=== PATIENT | female | born 1985 | race Caucasian/White ===

== ENCOUNTER 2016-11-26 05:10 | Emergency (ER) | payer OTHER ==
[~2016-11-26] VITALS: Ht 162.6 cm; Wt 48.0 kg
[~2016-11-26 05:10] MED LIST: DEXT155P PO; HC1C30 TOP; KEN25O TOP; OXYM30SP20 NASAL; POLY17PO6 PO
[2016-11-26 05:17] VITALS: Ht 162.6 cm; Wt 48.0 kg
--- NOTE | 2016-11-26 06:22 | ERD ---
ER Documentation Chief Complaint Date/Time DATE: 11/26/16 TIME: 06:18 Chief Complaint Bug in the left ear. can feel it moving HPI This is a 31-year-old female presenting to the emergency department for foreign body to left ear. Patient states she believes there is a "bug" in her left ear and states she can feel it moving. Patient states she noticed it about 3 hours ago. Patient denies any ear pain or ear drainage. No fevers or chills. No muffled hearing. No difficulty swallowing or pain with swallowing. ROS All systems reviewed and are negative except as per history of present illness. Medications Home Meds Active Scripts Ciprofloxacin Hcl/Dexameth (Ciprodex Otic Suspension) 7.5 Ml Drops.susp, 4 DROP LEFT EAR BID for 7 Days, EA Prov:KANWAL LICEA NP 11/26/16 Hydrocortisone* Topical (Hydrocortisone* Topical) 1%-28.35 Gm Cream..g., 1 APPLIC TOP Q6 Y for ITCHING, #1 TUB Prov:SASHA HOPKINS 08/07/16 Oxymetazoline Hcl (NASAL SPRAY EXTRA MOISTURIZING) 30 Ml [place], 1 SPRAY NASAL BID, #1 BOTTLE Prov:GWENDOLYN JARRELL DO 04/12/16 Triamcinolone Acetonide* (Kenalog*) 0.025%-15GM Oint, 1 APPLIC TOP BID, #1 EA Prov:GWENDOLYN JARRELL DO 04/12/16 Reported Medications Dextrin (EASY FIBER) 155 Gm Powder, 155 GM PO DAILY Y for NEEDED 04/12/16 Polyethylene Glycol* (Miralax*) 17 Gm Powd.pack, 8.5 GM PO DAILY, #30 PACKET 04/12/16 Allergies Allergies: Coded Allergies: No Known Drug Allergies (Verified Allergy, Unknown, 04/12/16) PMhx/Soc History of Surgery: No Anesthesia Reaction: No Hx Neurological Disorder: No Hx Respiratory Disorders: No Hx Cardiac Disorders: No Hx Psychiatric Problems: Yes (OCD, Autism) Hx Miscellaneous Medical Probl: Yes (Sciatica, Reynaud's disease, migraine. digestive problems) Hx Alcohol Use: No Hx Substance Use: No Hx Tobacco Use: No Smoking Status: Never smoker Physical Exam Vitals Vital Signs Date Time Temp Pulse Resp B/P Pulse Ox O2 Delivery O2 Flow Rate FiO2 11/26/16 05:17 97.4 85 18 105/67 100 Physical Exam Const: Alert, anxious Head: Atraumatic Eyes: Normal Conjunctiva ENT: Normal External Ears, Nose and Mouth. TM and ear canal normal to right side without erythema. Left ear canal reveals a foreign body, likely a bug. Resp: Clear to auscultation bilaterally Cardio: Regular rate and rhythm, no murmurs Skin: No petechiae or rashes Ext: No cyanosis, or edema Neur: Awake and alert Psych: Anxious Results 24 hrs Current Medications Medications (Trade) Dose Ordered Sig/Shellie Route PRN Reason Start Time Stop Time Status Last Admin Dose Admin Lidocaine (Xylocaine 1% (Mdv) 20 ml) 20 ml ONCE ONCE SC 11/26/16 06:30 11/26/16 06:31 DC Procedures/MDM ED COURSE: The patient was stable throughout ED course. I kept the patient and/or family informed of laboratory and diagnostic imaging results throughout the ED course. Lidocaine was placed in left ear. Ear irrigation performed per nursing staff. Foreign Body Removal by me: Location: Left ear Anesthesia: Local 1% Lidocaine placed inside left ear canal. Technique: Irrigated. Blunt dissection. Complications: Neurovascularly intact post procedure MDM: 31-year-old female presents to the ER with foreign body to left ear. Foreign body removal performed as detailed above. Small bowel was retrieved intact. Patient is calm and cooperative after procedure. No fevers or chills. Vital signs remained stable. Patient is appropriate for outpatient management. Diagnosis is foreign body to left ear. Patient is appropriate for outpatient management and be given prescription for Ciprodex otic suspension for possible infection. Instructed patient to follow- up with primary care provider in the next 2-3 days for reassessment. Return to ED for any high fever, chest pain, difficulty breathing, shortness breath, wheezing, vomiting, diarrhea, abdominal pain or any new or worsening symptoms. Patient and patient's mother verbalize understanding. All questions answered at discharge. Departure Diagnosis: Primary Impression: Foreign body in ear Encounter type: initial encounter Laterality: left Qualified Code: T16.2XXA - Foreign body in ear, left, initial encounter KANWAL LICEA NP Nov 26, 2016 06:22
[2016-11-26] MEDS ORDERED: LIDOCAINE 1% (MDV) 20 ML INJ SC ONE (06:30)
[2016-11-26] MEDS ORDERED: CIPR7.5D4 LEFT EAR (07:09)
== END 2016-11-26 07:10 | disposition home or self-care (01) ==
LOC: FTE 05:10
DX: T16.2XXA Foreign body in left ear, initial encounter (principal); F84.0 Autistic disorder; X58.XXXA Exposure to other specified factors, initial encounter; Y92.9 Unspecified place or not applicable
CPT/HCPCS: Z7502; Z7610; 99283

== ENCOUNTER 2017-01-09 08:19 | Emergency (ER) | payer OTHER ==
[~2017-01-09] VITALS: Ht 162.6 cm; Wt 51.0 kg
[~2017-01-09 08:19] MED LIST changes: +CIPR7.5D4 LEFT EAR
[2017-01-09 08:21] VITALS: Ht 162.6 cm; Wt 51.0 kg
[2017-01-09] MEDS ORDERED: NPH10OT BOTH EARS (09:24)
[2017-01-09] MEDS ORDERED: IBUP-1542 PO (09:24)
[2017-01-09] MEDS ORDERED: ACET500C5 PO (09:26)
[2017-01-09 09:52] VITALS: BP 150/66; PULSE 88; RESP 20
--- NOTE | 2017-01-09 10:17 | ERD ---
ER Documentation Chief Complaint Date/Time DATE: 01/09/17 TIME: 10:07 Chief Complaint b/l ear pain since monday HPI Patient is a 35-year-old female with a history of autism and OCD who presents to the ED with bilateral ear pain 1 week. She states that she has a history of ear infections in the past. She states that it hurts when she places a Q- tip inside of her ear. She denies difficulty hearing or drainage from her ears. She has not taken any medication for her symptoms. She denies fever or chills. She denies headache or dizziness, neck pain or stiffness. She is also complaining of 7 months of chronic abdominal pain. She states that she has a history of IBS and has bouts of constipation and diarrhea. She takes MiraLAX which helps with her symptoms however she would like to get a CAT scan done today. She has gotten blood work from her primary care and everything was within normal limits. However she states that she would like a CAT scan. She denies bloody or black or tarry stools. She denies vomiting. ROS All systems reviewed and are negative except as per history of present illness. Medications Home Meds Active Scripts Acetaminophen* (Tylophen*) 500 Mg Capsule, 1 CAP PO Q6H Y for PAIN AND OR ELEVATED TEMP, #20 CAP Prov:ADONAY HANNA PA-C 01/09/17 Neomycin/Polymyxin/Hydrocort* (Cortisporin* Otic) 10 Ml Susp, 4 DROP BOTH EARS QID for 7 Days, EA Prov:ADONAY HANNA PA-C 01/09/17 Ciprofloxacin Hcl/Dexameth (Ciprodex Otic Suspension) 7.5 Ml Drops.susp, 4 DROP LEFT EAR BID for 7 Days, EA Prov:KANWAL LICEA NP 11/26/16 Hydrocortisone* Topical (Hydrocortisone* Topical) 1%-28.35 Gm Cream..g., 1 APPLIC TOP Q6 Y for ITCHING, #1 TUB Prov:SASHA HOPKINS 08/07/16 Oxymetazoline Hcl (NASAL SPRAY EXTRA MOISTURIZING) 30 Ml [place], 1 SPRAY NASAL BID, #1 BOTTLE Prov:GWENDOLYN JARRELL DO 04/12/16 Triamcinolone Acetonide* (Kenalog*) 0.025%-15GM Oint, 1 APPLIC TOP BID, #1 EA Prov:GWENDOLYN JARRELL DO 04/12/16 Reported Medications Dextrin (EASY FIBER) 155 Gm Powder, 155 GM PO DAILY Y for NEEDED 04/12/16 Polyethylene Glycol* (Miralax*) 17 Gm Powd.pack, 8.5 GM PO DAILY, #30 PACKET 04/12/16 Discontinued Scripts Ibuprofen* (Motrin*) 600 Mg Tab, 600 MG PO Q6, #30 TAB Prov:ADONAY HANNA PA-C 01/09/17 Allergies Allergies: Coded Allergies: No Known Drug Allergies (Verified Allergy, Unknown, 01/09/17) PMhx/Soc Medical and Surgical Hx: pt denies Surgical Hx History of Surgery: No Anesthesia Reaction: No Hx Neurological Disorder: No Hx Respiratory Disorders: No Hx Cardiac Disorders: No Hx Psychiatric Problems: Yes (OCD, Autism) Hx Miscellaneous Medical Probl: Yes (Sciatica, Reynaud's disease, migraine. IBD ) Hx Alcohol Use: No Hx Substance Use: No Hx Tobacco Use: No Smoking Status: Never smoker Physical Exam Vitals Vital Signs Date Time Temp Pulse Resp B/P Pulse Ox O2 Delivery O2 Flow Rate FiO2 01/09/17 09:52 88 20 150/66 98 Room Air 01/09/17 08:21 97.6 90 18 100/63 99 Physical Exam GENERAL: Well-developed, well-nourished female. Appears in no acute distress. HEAD: Normocephalic, atraumatic. EYES: Pupils are equally reactive bilaterally. EOMs grossly intact. No conjunctival erythema. ENT: Moist mucous membranes. No uvula deviation. No kissing tonsils. No exudates. Tenderness to pinna and tragus. TM is nonerythematous and nondraining. No mastoid tenderness NECK: Supple. No lymphadenopathy or thyromegaly. No meningismus. negative kernig. negative brudinski. LUNG: Clear to auscultation bilaterally. No rhonchi, wheezing, rales or coarse breath sounds. HEART: Regular rate and rhythm. No murmurs, rubs or gallops. ABDOMEN: No scars, ecchymosis or rashes noted. Soft, nontender, and nondistended. Positive bowel sounds in all four quadrants. No rebound tenderness , no guarding. (-) McBurneys point tenderness. Left CVA tenderness. BACK: No midline tenderness. Generalized tenderness in abdomen. Unable to do full exam as patient did not want to lay down. Extremities: Equal pulses bilaterally. No peripheral clubbing, cyanosis or edema. No unilateral leg swelling. NEUROLOGIC: Alert and oriented. Moving all four extremities. 5/5 strength in all extremities. Normal speech. Steady gait. SKIN: Normal color. Warm and dry. No rashes or lesions. Capillary refill < 2 seconds Procedures/MDM ER COURSE: I kept the patient and/or family informed of laboratory and diagnostic imaging results throughout the emergency room course. MEDICAL DECISION MAKING: This is a 31-year-old female with a history of autism and OCD who presents with bilateral ear pain and chronic abdominal pain. Vital signs were reviewed. Patient is afebrile. Patient is not hypoxic. Patient is nontoxic or ill- appearing. Patient likely has otitis externa of her ears. Low suspicion for malignant otitis externa, TM perforation, mastoiditis, acute otitis media. I explained to patient risk versus benefits of a CT scan. However I do not think a CT scan is warranted at this time as she has had chronic abdominal pain. And a normal blood exam from her PCP. She states that she has not seen a public health sanitarian because all the doctors have been male and she is requesting a female GI doctor. Mother is requesting a CT scan however patient does not want to give a urine sample or test. I explained to mother and patient that a urine test must be negative for a CAT scan to be done. Mom and patient continues to keep telling that patient is a virgin and has not left the house in 2 years. Mom also states that she has had multiple CAT scans in the past without a test. I spoke with Dr. Dunn who stated that patient can sign a form stating she can get a CAT scan without test. However Dr. Flores refuses to do a CAT scan without a negative test. I explained to patient however patient is still insisting on a CAT scan. Dr. Dunn came to discuss hospital protocol with patient. Patient is stable for outpatient management. No CAT scan will be done today. Low suspicion for ACS, AAA, perforated ulcer, bowel obstruction, cholecystitis, choledocholithiasis, cholangitis, pancreatitis, hepatic abscess, appendicitis, diverticulitis, gastroenteritis, hepatitis, peptic ulcer disease, HELLP syndrome. DISCHARGE: At this time, patient is stable for discharge and outpatient management with no new complaints during the ER course. Patient was sent home with Corticosporin otic and Tylenol for pain. Names of other GI doctors in the area were given to patient and advised patient that she needs to follow-up with primary care regarding her chronic issues. As well as seeing counseling for her OCD. Patient will be discharged home with instructions to recheck for new or worsening symptoms such as fever, nausea, weakness, LOC and to follow up with primary care in the next 1-2 days. Patient was advised to return to the ER for any new or worsening symptoms. Plan was discussed and patient and/or family understands and agrees. Home instructions were given. Departure Diagnosis: Primary Impression: Otitis externa Otitis externa type: unspecified type Laterality: bilateral Chronicity: unspecified Qualified Code: H60.93 - Otitis externa of both ears, unspecified chronicity, unspecified type Condition: Stable Patient Instructions: External Ear Infection (Adult) Referrals: [facility] DIANA MCDERMOTT GNANA MD REDDY, NISCHITA M.D. [facility] YOU HAVE RECEIVED A MEDICAL SCREENING EXAM AND THE RESULTS INDICATE THAT YOU DO NOT HAVE A CONDITION THAT REQUIRES URGENT TREATMENT IN THE EMERGENCY DEPARTMENT. FURTHER EVALUATION AND TREATMENT OF YOUR CONDITION CAN WAIT UNTIL YOU ARE SEEN IN YOUR DOCTORS OFFICE WITHIN THE NEXT 1-2 DAYS. IT IS YOUR RESPONSIBILITY TO MAKE AN APPOINTMENT FOR FOLOW-UP CARE. IF YOU HAVE A PRIMARY DOCTOR --you should call your primary doctor and schedule an appointment IF YOU DO NOT HAVE A PRIMARY DOCTOR YOU CAN CALL OUR PHYSICIAN REFERRAL HOTLINE AT IF YOU CAN NOT AFFORD TO SEE A PHYSICIAN YOU CAN CHOSE FROM THE FOLLOWING [facility] CL[facility]ICS [facility] [address] [facility] [address] [facility] [address] [facility] [address] [facility] [address] [facility] [facility]. [address] Additional Instructions: Call your primary care doctor TOMORROW for an appointment during the next 1-2 days.See the doctor sooner or return here if your condition worsens before your appointment time. ADONAY HANNA PA-C Jan 09, 2017 10:16
== END 2017-01-09 09:52 | disposition home or self-care (01) ==
LOC: FTE 08:19
DX: H60.93 Unspecified otitis externa, bilateral (principal); F84.0 Autistic disorder
CPT/HCPCS: 99283

== ENCOUNTER 2018-07-28 01:13 | Emergency (ER) | END 2018-07-28 05:09 | disposition home or self-care (01) ==